=== PATIENT | female | born 1960 | race Caucasian/White ===

== ENCOUNTER → 2017-05-26 | Outpatient (CLI) | payer OTHER | LOC: BMCIMAGING 13:16 | PROVIDERS: ATTEND Internal Medicine | DX: Z13.820 Encounter for screening for osteoporosis (principal); M85.80 Other specified disorders of bone density and structure, unspecified site | CPT/HCPCS: G0202 ==

== ENCOUNTER → 2018-12-21 | Outpatient (CLI) | payer OTHER | LOC: BMCIMAGING 08:52 | PROVIDERS: ATTEND Internal Medicine | DX: Z12.31 Encounter for screening mammogram for malignant neoplasm of breast (principal) ==

== ENCOUNTER → 2019-01-04 | Outpatient (CLI) | payer OTHER | LOC: BMCIMAGING 11:19 | PROVIDERS: ATTEND Internal Medicine | DX: M20.12 Hallux valgus (acquired), left foot (principal) ==